=== PATIENT | female | born 1990 | race Caucasian/White ===

== ENCOUNTER 2020-03-31 18:28 | Emergency (ER) | payer OTHER ==
[~2020-03-31] VITALS: Ht 180.3 cm; Wt 72.6 kg
[2020-03-31] MEDS ORDERED: MEDROXYPROGESTE10 MG PO (22:44)
== END 2020-03-31 22:48 | disposition home or self-care (01) ==
LOC: ER 18:28
DX: N93.8 Other specified abnormal uterine and vaginal bleeding (principal)

== ENCOUNTER 2020-12-02 23:39 | Outpatient (CLI) | payer OTHER ==
[~2020-12-02 23:39] MED LIST: MEDROXYPROGESTE10 MG PO
[2020-12-02] MEDS ORDERED: PRENATAL TABLE1 EAC1 PO (23:41)
== END 2020-12-03 16:57 | disposition home or self-care (01) ==
LOC: OBS/DEL 23:39
PROVIDERS: ATTEND Obstetrics & Gynecology
DX: O26.892 Other specified pregnancy related conditions, second trimester (principal); R10.2 Pelvic and perineal pain; Z3A.22 22 weeks gestation of pregnancy

== ENCOUNTER → 2020-12-16 | Outpatient (CLI) | payer OTHER ==
[~2020-12-16] MED LIST changes: +PRENATAL TABLE1 EAC1 PO
== END | disposition home or self-care (01) ==
LOC: PRENATAL 13:59
PROVIDERS: ATTEND Obstetrics & Gynecology Maternal & Fetal Medicine
DX: O35.0XX1 Maternal care for (suspected) central nervous system malformation in fetus, fetus 1 (principal); O35.3XX1 Maternal care for (suspected) damage to fetus from viral disease in mother, fetus 1; O98.512 Other viral diseases complicating pregnancy, second trimester; Z36.89 Encounter for other specified antenatal screening; Z3A.24 24 weeks gestation of pregnancy

== ENCOUNTER 2021-03-21 12:59 | Outpatient (CLI) | payer OTHER | END 2021-03-22 08:00 | disposition home or self-care (01) | LOC: OBS/DEL 12:59 | PROVIDERS: ATTEND Obstetrics & Gynecology | DX: O47.1 False labor at or after 37 completed weeks of gestation (principal); Z3A.39 39 weeks gestation of pregnancy ==

== ENCOUNTER 2021-04-03 04:32 | Inpatient (IN) | payer OTHER ==
[~2021-04-03] VITALS: Ht 180.3 cm; Wt 90.7 kg
[2021-04-03] MEDS ORDERED: PRENATAL TABLE1 EAC3 PO (05:02)
== END 2021-04-05 14:55 | disposition home or self-care (01) | DRG 807 ==
LOC: OB/GYN 04:32 → LDR 04:32 → OB/GYN 13:03
PROVIDERS: ADMIT Obstetrics & Gynecology; ATTEND Obstetrics & Gynecology
PROC: 10E0XZZ Delivery of Products of Conception, External Approach (ICD-10-PCS; principal; 2021-04-03)
PROC: 0HQ9XZZ Repair Perineum Skin, External Approach (ICD-10-PCS; 2021-04-03)
PROC: 10907ZC Drainage of Amniotic Fluid, Therapeutic from Products of Conception, Via Natural or Artificial Opening (ICD-10-PCS; 2021-04-03)
PROC: 3E0P7VZ Introduction of Hormone into Female Reproductive, Via Natural or Artificial Opening (ICD-10-PCS; 2021-04-03)
PROC: 4A1HXFZ Monitoring of Products of Conception, Cardiac Rhythm, External Approach (ICD-10-PCS; 2021-04-03)
DX: O70.0 First degree perineal laceration during delivery (principal); Z37.0 Single live birth; Z3A.39 39 weeks gestation of pregnancy